=== PATIENT | female | born 1950 ===

== ENCOUNTER 2020-02-28 13:14 | Outpatient (CLI) | payer OTHER ==
[~2020-02-28 13:14] MED LIST: CEFADROXIL500 MG PO; SULFAMETHOXAZOL1 TA6 PO; TAMS0.4C PO; ULTRAM50 MG PO
== END 2020-02-28 13:20 | disposition home or self-care (01) ==
LOC: LAB 13:14 → MRI 03-03 11:15
DX: R53.1 Weakness (principal); D50.8 Other iron deficiency anemias

== ENCOUNTER 2020-03-12 12:01 | Outpatient (CLI) | payer OTHER | END 2020-03-12 12:12 | disposition home or self-care (01) | LOC: SONOGRAMA 12:01 | PROVIDERS: ATTEND Pathology Anatomic Pathology & Clinical Pathology | DX: E04.2 Nontoxic multinodular goiter (principal) ==

== ENCOUNTER 2020-08-31 18:54 | Emergency (ER) | payer OTHER ==
[~2020-08-31] VITALS: Ht 162.6 cm; Wt 90.7 kg
[2020-08-31] MEDS ORDERED: PEPCID AC20 MG PO (22:30)
[2020-08-31] MEDS ORDERED: KETO10TA2 PO (22:30)
== END 2020-09-01 03:42 | disposition home or self-care (01) ==
LOC: ER 18:54
DX: S40.021A Contusion of right upper arm, initial encounter (principal); S50.02XA Contusion of left elbow, initial encounter; M25.562 Pain in left knee; M79.662 Pain in left lower leg; W18.09XA Striking against other object with subsequent fall, initial encounter; Y93.89 Activity, other specified; Y92.238 Other place in hospital as the place of occurrence of the external cause; Y99.8 Other external cause status; Z03.818 Encounter for observation for suspected exposure to other biological agents ruled out